=== PATIENT | male | born 1955 | race Caucasian/White ===

== ENCOUNTER 2022-09-17 11:50 | Day surgery (SDC) | payer OTHER ==
[~2022-09-17] VITALS: Ht 172.7 cm; Wt 75.0 kg
[~2022-09-17 11:50] MED LIST: K-TAB ER20 MEQ PO; TRIAMTERENE-HC1 EAC3 PO
[2022-09-17 12:07] VITALS: BP 126/67
--- NOTE | 2022-09-17 13:39 | NUR ---
09/17/22 Nimco Jones4- PT ARRIVES TO PACU AWAKE AND TALKING. PT REPORTS NO PAIN OR NAUSEA. RESP EVEN AND UNLABORED. OXYGEN SAT HIGH 90'S TO 100% ON 3L VIA CO2 NC. EDUCATED PT ABOUT PASSING FLATUS IF HE EXPERIENCES ABD CRAMPING. PT STATES UNDERSTANDING.
[2022-09-17 14:03] VITALS: BP 131/82
--- NOTE | 2022-09-18 04:12 | OR ---
[facility] [address], [place] [address] Signed DATE OF OPERATION: 09/17/2022 SURGEON: Regine Torres MD PREOPERATIVE DIAGNOSES: Family history of colon cancer father. Previous colonoscopy 2013 negative. POSTOPERATIVE DIAGNOSES: 1. Sigmoid diverticulosis. 2. Small polyp left colon at 50 cm. PROCEDURE: Total colonoscopy to cecum with cold morcellation polypectomy x1. ANESTHESIA: Intravenous sedation; fentanyl 100 mcg and Versed 4 mg. INDICATION: This 66-year-old white man is a patient of Noreen Franco and last underwent colonoscopy in 2013, which was said to be normal. He has no current symptoms of bleeding, diarrhea or constipation, but does have family history of polyps of the colon and colon cancer in his father per his description. He is now admitted to undergo colonoscopy for screening. He understands the risk of bleeding, infection, and perforation. FINDINGS: The prep was excellent. Complete colonoscopy was undertaken of the cecum. Full intubation of the cecum was accomplished. There were scattered diverticula of the sigmoid colon and one small polyp of the left colon at 50 cm which was excised with cold morcellation technique. DESCRIPTION OF PROCEDURE: The patient was brought to the endoscopy suite and placed in the lateral decubitus position, given intravenous sedation to the point of slurred speech and nystagmus. Digital rectal examination was normal. An Olympus video colonoscope was passed in the rectum and manipulated throughout the colon ultimately intubating the cecum itself. The ileocecal valve and appendiceal orifice were normal. The scope was withdrawn from that point and examination throughout showed no sign of abnormality until approximately 50 cm from the anal verge where a Electronically Signed By: REGINE TORRES MD 09/18/22 0412 PATIENT NAME: MEGAN POOLE OPERATIVE REPORT DATE OF : 53 REPORT #: [id number] PHYSICIAN: REGINE TORRES MD PCP: NOREEN FRANCO PAC REPORT IS CONFIDENTIAL AND NOT TO BE RELEASED WITHOUT AUTHORIZATION [facility] [address], [place] [address] Signed small sessile polyp was noted, this was excised with several morcellation bites with the biopsy forceps until it was completely gone. The scope was then withdrawn further and diverticula were seen in the sigmoid and left colon. Retroflexed view of the rectum was normal. Scope was removed and the patient was taken to the recovery room in good condition. CONCLUDING DIAGNOSES: Polyp x1 and diverticulosis. PLAN: Recommend repeat colonoscopy in 5 years, sooner if clinically indicated. He will return to the ongoing care of LEONOR Sims MD KASH Gómez/INDUL /[id number] cc: LEONOR Sims Copies: ~ Electronically Signed By: REGINE TORRES MD 09/18/22 0412 PATIENT NAME: MEGAN POOLE OPERATIVE REPORT DATE OF : 53 REPORT #: [id number] PHYSICIAN: REGINE TORRES MD PCP: NOREEN FRANCO PAC REPORT IS CONFIDENTIAL AND NOT TO BE RELEASED WITHOUT AUTHORIZATION
--- NOTE | 2022-09-19 12:31 | PATH ---
[facility] [address] [place], [place] [address] Signed SPECIMEN(S): A DESCENDING/LEFT COLON POLYP SPECIMEN SOURCE: A. DESCENDING/LEFT COLON POLYP CLINICAL HISTORY: Family hx colon CA. Post Op: Diverticulosis, polyp x 1. FINAL PATHOLOGIC DIAGNOSIS: Descending / left colon polyp: - Tubular adenoma (three fragments). - Hyperplastic polyps (three fragments). JVR:smh:[id number] MICROSCOPIC EXAMINATION: Histologic sections of all submitted blocks are examined by light microscopy. These findings, together with the gross examination, support the pathologic diagnosis. GROSS DESCRIPTION: The specimen, labeled and designated "[place], descending/left colon polyp," is received in formalin and consists of six martinez soft tissue fragments, ranging from 0.1-0.5 cm. Entirely submitted in (A1). VB (under the direct supervision of a pathologist) The Gross Description was prepared using a voice recognition system. The report was reviewed for accuracy; however, sound-alike word errors, addition and/or deletions may occur. If there is any question about this report, please contact Client Services. PERFORMING LABORATORY: The technical component was performed by [facility], [address] [place] [id number] (CLIA# [id number]). Professional interpretation was performed by [facility], [address] [place] [id number] (CLIA#: [id number]). Diagnostician: Girish Baez MD Pathologist Electronically Signed 09/19/2022 PATIENT NAME: MEGAN POOLE PATHOLOGY DATE OF : 53 REPORT #: [id number] PHYSICIAN: [facility] PCP: NOREEN FRANCO PAC REPORT IS CONFIDENTIAL AND NOT TO BE RELEASED WITHOUT AUTHORIZATION [address] [address] Signed Copies: ~ PATIENT NAME: MEGAN POOLE PATHOLOGY DATE OF : 53 REPORT #: [id number] PHYSICIAN: [facility] PCP: NOREEN FRANCO PAC REPORT IS CONFIDENTIAL AND NOT TO BE RELEASED WITHOUT AUTHORIZATION
== END 2022-09-17 14:10 | disposition home or self-care (01) ==
LOC: DS 11:50 → OPS 11:50 → DS 11:58 → OPS 13:00
PROVIDERS: ATTEND Surgery
PROC: 0DBG8ZX Excision of Left Large Intestine, Via Natural or Artificial Opening Endoscopic, Diagnostic (ICD-10-PCS; principal; 2022-09-17 13:00)
DX: Z12.11 Encounter for screening for malignant neoplasm of colon (principal); Z80.0 Family history of malignant neoplasm of digestive organs; D12.4 Benign neoplasm of descending colon; I10 Essential (primary) hypertension; K57.30 Diverticulosis of large intestine without perforation or abscess without bleeding; Z79.899 Other long term (current) drug therapy
CPT/HCPCS: 99153; G0500; J2250; J3010; J7121